=== PATIENT | female | born 1985 | race Caucasian/White ===

== ENCOUNTER 2018-08-31 12:42 | Emergency (ER) | payer BC, OTHER ==
[2018-08-31] MEDS ORDERED: hydrOXYzine HCl 25 MG Tab PO ONE (13:19)
--- NOTE | 2018-08-31 13:19 | EDM.PDOC ---
ED HPI GENERAL MEDICAL PROBLEM - General Stated Complaint: SVT;HEART RACING Time Seen by Provider: 08/31/18 12:50 Source of Information: Reports: Patient History Limitations: Reports: No Limitations - History of Present Illness INITIAL COMMENTS - FREE TEXT/NARRATIVE: Patient comes into the emergency department with palpitations. Patient states that she has a history of SVT. She noticed that went into SVT approximately 45 minutes prior to arrival to emergency department. She does have a prescription of metoprolol when necessary that she did take at home. She states normally about 20 minutes after taking the medication she is able to convert on her own back into sinus rhythm. However 25 minutes after she took the medications it had not work so she presented to the emergency department. While in the waiting room she states that she converted on her own. She would like to be evaluated to ensure that she does not issues. Denies any chest pain, shortness of breath, dizziness, lightheadedness, palpitations, swelling, or illness. Onset: Gradual - Related Data Allergies Allergy/AdvReac Type Severity Reaction Status Date / Time Penicillins Allergy Rash Verified 08/31/18 13:37 Home Meds: Home Meds SitaGLIPtin [Januvia] 50 mg PO DAILY 07/20/14 [History] glipiZIDE [Glucotrol XL] 5 mg PO DAILY 07/20/14 [History] metFORMIN [Glucophage] 850 mg PO BID 07/20/14 [History] Metoprolol Tartrate 0 mg PO ASDIRECTED PRN 08/31/18 [History] Past Medical History Cardiovascular History: Reports: Other (See Below) Other Cardiovascular History: SVT [employer] WORK[employer] History: Reports: Psychiatric History: Reports: Anxiety Endocrine/Metabolic History: Reports: Diabetes, Type II - Past Surgical History HEENT Surgical History: Reports: LASIK, Oral Surgery, Other (See Below) ED ROS GENERAL - Review of Systems Review Of Systems: See Below Constitutional: Reports: No Symptoms HEENT: Reports: No Symptoms Respiratory: Reports: No Symptoms Cardiovascular: Reports: Palpitations (have resoloved) GI/Abdominal: Reports: No Symptoms : Reports: No Symptoms Musculoskeletal: Reports: No Symptoms Skin: Reports: No Symptoms Neurological: Reports: No Symptoms Psychiatric: Reports: Anxiety Hematologic/Lymphatic: Reports: No Symptoms Immunologic: Reports: No Symptoms ED EXAM, GENERAL - Physical Exam Exam: See Below Exam Limited By: No Limitations General Appearance: Alert, WD/WN, No Apparent Distress Respiratory/Chest: No Respiratory Distress, Lungs Clear, Normal Breath Sounds, No Accessory Muscle Use, Chest Non-Tender Cardiovascular: Normal Peripheral Pulses, Regular Rate, Rhythm, No JVD, No Murmur, No Rub, Tachycardia Peripheral Pulses: 3+: Brachial (L), Brachial (R), Dorsalis Pedis (L), Dorsalis Pedis (R) GI/Abdominal: Normal Bowel Sounds, Soft, Non-Tender, No Distention, No Abnormal Bruit Back Exam: Normal Inspection, Full Range of Motion Extremities: Normal Inspection, Normal Range of Motion, Normal Capillary Refill Neurological: Alert, Oriented, Normal Gait Psychiatric: Normal Affect, Anxious Skin Exam: Warm, Dry, Intact, Normal Color, No Rash Course - Vital Signs Last Recorded V/S: Last Vital Signs Temp 37.3 C 08/31/18 12:55 Pulse 86 08/31/18 12:55 Resp 20 08/31/18 12:55 BP 122/86 08/31/18 12:55 Pulse Ox 98 08/31/18 12:55 - Orders/Labs/Meds Orders: Active Orders 24 hr Category Date Time Status Cardiac Monitoring [RC] . DIRECTED Care 08/31/18 13:12 Active EKG Documentation Completion [RC] STAT Care 08/31/18 13:12 Active Meds: Medications Discontinued Medications Generic Name Dose Route Start Last Admin Trade Name Julieta PRN Reason Stop Dose Admin Hydroxyzine HCl 25 mg 08/31/18 13:19 08/31/18 13:28 Atarax PO 08/31/18 13:20 25 mg ONETIME ONE Administration Departure - Departure Time of Disposition: 13:50 Disposition: Home, Self-Care 01 Condition: Good Clinical Impression: SVT (supraventricular tachycardia) - Discharge Information *PRESCRIPTION DRUG MONITORING PROGRAM REVIEWED*: Not Applicable *COPY OF PRESCRIPTION DRUG MONITORING REPORT IN PATIENT GATO: Not Applicable Instructions: Supraventricular Tachycardia, Adult, [id number] Referrals: Sarahi Orellana MD [Primary Care Provider] - Forms: ED Return to Work/School Form Additional Instructions: 1. rest 2. increase water intake 3. Schedule appointment with cardiology since it has been 3 years for another evaluation 4. Avoid caffiene, stress and smoking to help decrease the risk 5. Follow up as needed 6. Call with any questions or concerns - My Orders Last 24 Hours: My Active Orders 08/31/18 13:12 Cardiac Monitoring [RC] . DIRECTED EKG Documentation Completion [RC] STAT - Assessment/Plan Last 24 Hours: My Active Orders 08/31/18 13:12 Cardiac Monitoring [RC] . DIRECTED EKG Documentation Completion [RC] STAT Assessment:: 1. Tachycardia with history of SVT Plan: 1. EKG completed in ER. Results reviewed with the pt. Sinus tach noted on EKG 2. Hydroxyzine given in ER to help with anxiety 3. Pt took her PRN metoprolol prior to arrival and has converted on her own. She would not like any further testing completed at this time. We did monitor her for another 45 mins and no abnormalities were noted on the EKG. 4. Pt is advised to follow up with cardiology for further management recommendations since it has been 3 years. 5. All questions and concerns were addressed prior to discharge
[2018-08-31 13:33] VITALS: BP 122/86
== END 2018-08-31 14:10 | disposition home or self-care (01) ==
LOC: VM.ED 12:42
DX: I47.1 Supraventricular tachycardia (principal); E11.9 Type 2 diabetes mellitus without complications; Z79.84 Long term (current) use of oral hypoglycemic drugs; Z88.0 Allergy status to penicillin
CPT/HCPCS: 93005; 99284; A9270